=== PATIENT | male | born 1955 | race Caucasian/White ===

== ENCOUNTER 2024-11-01 09:56 | Day surgery (SDC) | payer MEDICARE, BC ==
[~2024-11-01] VITALS: Ht 193 cm; Wt 111.3 kg
[2024-11-01] VITALS (22 sets, daily range): BP systolic 98–133; BP diastolic 62–96; PULSE 71–100; RESP 10–14; TEMP 98.6; O2SAT 94–99
[2024-11-01 10:38] LABS: BASOPHILS # (AUTO) 0.1 X10'3 (0-0.2); BASOPHILS % (AUTO) 1.1 % (0-1); EOSINOPHILS # (AUTO) 0.2 X10'3 (0-0.9); EOSINOPHILS % (AUTO) 3.8 % (0-6); HEMATOCRIT 46.6 % (42.0-52.0); HEMOGLOBIN 15.5 g/dl (14.0-17.9); LYMPHOCYTES # (AUTO) 1.8 X10'3 (1.1-4.8); LYMPHOCYTES % (AUTO) 36.2 % (21-51); MEAN CORPUSCULAR HEMOGLOBIN 30.3 PG (27.0-31.0); MEAN CORPUSCULAR HGB CONC 33.3 g/dL (33.0-36.5); MEAN CORPUSCULAR VOLUME 91.2 FL (78-98); MEAN PLATELET VOLUME 8.4 FL (7.4-10.4); MONOCYTES # (AUTO) 0.5 X10'3 (0-0.9); MONOCYTES % (AUTO) 11.1 % (2-12); NEUTROPHILS # (AUTO) 2.3 X10'3 (1.8-7.7); NEUTROPHILS % (AUTO) 47.8 % (42-75); PLATELET COUNT 218 X10'3 (140-440); RED BLOOD COUNT 5.11 X10'6 (4.70-6.10); RED CELL DISTRIBUTION WIDTH 13.6 % (11.5-14.5); WHITE BLOOD COUNT 4.9 X10'3 (4.5-11.0)
[2024-11-01] MEDS ORDERED: ATOR20TA66 (10:44)
[2024-11-01] MEDS ORDERED: TAM50T PO (10:44)
[2024-11-01] MEDS ORDERED: LISI10TA27 (10:44)
[2024-11-01] MEDS ORDERED: APIX5TAB3 PO (10:44)
[2024-11-01 10:45] LABS: ALBUMIN 4.2 G/DL (3.4-5.0); ANION GAP 8 (8-16); BLOOD UREA NITROGEN 12 MG/DL (7-18); BUN/CREATININE RATIO 16.7 (10.0-20.0); CALCIUM 8.9 MG/DL (8.5-10.1); CHLORIDE 107 MMOL/L (99-107); CREATININE 0.72 MG/DL (0.60-1.10); GLUCOSE 92 MG/DL (70-104); POTASSIUM 4.1 MMOL/L (3.5-5.1); SODIUM 141 MMOL/L (135-145); TOTAL CARBON DIOXIDE 26.1 MMOL/L (24-32); eCRCL 122 ML/MIN; eGFR > 90 ML/MIN
[2024-11-01] MEDS ORDERED: FLUO40CA (10:45)
[2024-11-01] MEDS ORDERED: BUPR-561 PO (10:45)
[2024-11-01 10:47] LABS: INR 1.1 INR; PROTHROMBIN TIME 11.6 SECONDS (9.0-12.0)
[2024-11-01] MEDS: glycopyrrolate 0.2mg/ml inj IV ONE (11:16)
[2024-11-01] MEDS: normal saline 1000ml 1,000 ML IV SCH (11:16)
[2024-11-01] MEDS: fentaNYL/PF 50MCG/1 ML 2ML syringe IV ONE (14:12)
[2024-11-01] MEDS: MIDAZolam 1mg/ml 10ml vial IV ONE (14:13)
== END 2024-11-01 15:30 | disposition short-term general hospital (02) ==
LOC: SSTAY O 09:56
PROVIDERS: ATTEND Internal Medicine Cardiovascular Disease
DX: I48.19 Other persistent atrial fibrillation (principal); I34.0 Nonrheumatic mitral (valve) insufficiency; I48.0 Paroxysmal atrial fibrillation; I10 Essential (primary) hypertension; E78.5 Hyperlipidemia, unspecified; Z79.899 Other long term (current) drug therapy; Z98.890 Other specified postprocedural states; Z88.8 Allergy status to other drugs, medicaments and biological substances
CPT/HCPCS: 36415; 80048; 83735; 85025; 85610; 92960; 93005; 93325; C8925; J2250; J3010; J3490; J7030; Z7610; 93312